=== PATIENT | male | born 1945 | race Caucasian/White ===

== ENCOUNTER 2024-11-14 14:46 | Emergency (ER) | payer OTHER ==
--- NOTE | 2024-11-14 15:43 | EDPHYS ---
Physician Documentation [facility] Name: Bradly Lowe Age: 78 yrs Sex: Male : 1945 Arrival Date: 11/14/2024 Time: 14:46 Bed DX4 Private MD: ED Physician Kwesi Maier HPI: 11/14 15:38 This 78 yrs old Male presents to ER via Ambulatory with complaints of Insect Bite. cr8 15:38 Patient is a 78-year-old male with a history of hypertension A-fib diabetes that comes cr8 emergency room for possible spider bite to his right lower leg. Has been there for a week. Denies fever or chills. He has been to multiple physicians and he states they tell him is nothing and to monitor it. There is been no rapid expansion. It is painful. There are some bruising overlying. He thinks is a spider bite.. Historical: - Allergies: 15:26 No Known Allergies; me1 - PMHx: 15:26 Diabetes mellitus; Hypertensive disorder; neuropathy; Atrial fibrillation; me1 - PSHx: 15:26 Operative procedure on knee; left shoulder; me1 - Immunization history:: Adult Immunizations up to date. - Infectious Disease History:: Denies. - Social history:: Smoking status: Patient denies any tobacco usage or history of. ROS: 15:38 Constitutional: as per HPI cr8 Exam: 15:38 Constitutional: This is a well developed, well nourished patient who is awake, alert, cr8 and in no acute distress. Skin: Warm, dry with normal turgor. Right lower extremity on the distal anterior surface there is a 1-1/2 cm induration with ecchymosis and tenderness. Is nonfluctuant. There is no significant surrounding warmth or erythema. It is tender to palpation. Color is consistent with bruising and possible hematoma. MS/ Extremity: Pulses equal, no cyanosis. Neurovascular intact. Full, normal range of motion. Vital Signs: 15:20 BP 119 / 81; Pulse 78; Resp 18; Temp 98.2; Pulse Ox 96% ; Weight 95.25 kg; Height 5 ft. me1 8 in. ; Pain 7/10; 15:20 Body Mass Index 31.93 (95.25 kg, 172.72 cm) me1 15:20 Pain Scale: Adult me1 Procedures: 15:38 Cleaned the area with alcohol. Then using #11 scalpel to make a quick puncture. There cr8 was no purulent fluid. Only sanguinous drainage. Patient verbalized understanding was agreeable with the procedure.. MDM: 15:37 Medical Screening Exam initiated cr8 15:38 Data reviewed: vital signs, nurses notes. ED course: Patient came into the emergency cr8 room for a wound that he believes is a spider bite. Differential includes cellulitis, hematoma, abscess, necrotizing fasciitis. On examination there is no evidence of true infection. There is no surrounding warmth erythema. The wound is not fluctuant. There is been no rapid progression fever or chills I do not suspect necrotizing fasciitis. Used a #11 blade scalpel to make a puncture wound. No purulent fluid was expressed. However given his diabetic status and comorbidities we will go ahead and place him on doxycycline in case he does develop infection. Discussed other treatment plan including symptomatic treatment. He verbalized understanding was agreeable. Discharged in stable condition.. Administered Medications: No medications were administered Disposition Summary: 11/14/24 15:43 Discharge Ordered Notes: Location: Home cr8 Condition: Stable cr8 Diagnosis - Nontraumatic hematoma of soft tissue cr8 - Spontaneous ecchymoses cr8 Followup: cr8 - With: Private Physician - When: 2 - 3 days - Reason: Recheck today's complaints Followup: cr8 - With: Emergency Department - When: As needed - Reason: Fever > 102 F, Worsening of condition Discharge Instructions: - Discharge Summary Sheet cr8 - Hematoma cr8 Forms: - Medication Reconciliation Form cr8 - Antibiotic Education cr8 - Patient Portal Instructions cr8 - Leadership Thank You Letter cr8 Prescriptions: - Doxycycline Hyclate 100 mg Oral tablet - take 1 tablet ORAL route every 12 hours for 7 days; 14 tablet; Refills: 0, cr8 Product Selection Permitted Signatures: Yohana Lizarraga RN RN ks1 Zander Lama NP NP cr8 Corrections: (The following items were deleted from the chart) 15:29 15:26 PSHx: neuropathy; me1 me1 15:39 15:38 Patient is a 78-year-old male with a history of hypertension. cr8 cr8
--- NOTE | 2024-11-14 15:43 | ER ---
Nurse's Notes [facility] Name: Bradly Lowe Age: 78 yrs Sex: Male : 1945 Arrival Date: 11/14/2024 Time: 14:46 Bed DX4 Private MD: Diagnosis: Nontraumatic hematoma of soft tissue;Spontaneous ecchymoses Presentation: 11/14 15:20 Chief complaint: Patient states: one week ago patient noticed a red, swollen area on me1 right mattson, saw pcp and he didn't prescribe anything. Wound has worsened and he went to urgent care yesterday or day before and they chuy a shoalwater around the red area and was told to come back if the redness gets worse. Redness is present outside of shoalwater. Pain level 7/10. Denies fever/chills. Coronavirus screen: Vaccine status: Patient reports receiving the 2nd dose of the covid vaccine. Ebola Screen: No symptoms or risks identified at this time. Initial Sepsis Screen: Does the patient meet any 2 criteria? No. Patient's initial sepsis screen is negative. Does the patient have a suspected source of infection? No. Patient's initial sepsis screen is negative. Risk Assessment: Do you want to hurt yourself or someone else? Patient reports no desire to harm self or others. Onset of symptoms was November 07, 2024. 15:20 [place] [facility] [place] Acuity: BRICE 3 me1 Historical: - Allergies: 15:26 No Known Allergies; me1 - PMHx: 15:26 Diabetes mellitus; Hypertensive disorder; neuropathy; Atrial fibrillation; me1 - PSHx: 15:26 Operative procedure on knee; left shoulder; me1 - Immunization history:: Adult Immunizations up to date. - Infectious Disease History:: Denies. - Social history:: Smoking status: Patient denies any tobacco usage or history of. Assessment: 16:14 Reassessment: Patient is alert, oriented x 3, equal unlabored respirations, skin aa5 warm/dry/pink. Vital Signs: 15:20 BP 119 / 81; Pulse 78; Resp 18; Temp 98.2; Pulse Ox 96% ; Weight 95.25 kg; Height 5 ft. me1 8 in. ; Pain 7/10; 15:20 Body Mass Index 31.93 (95.25 kg, 172.72 cm) me1 15:20 Pain Scale: Adult me1 ED Course: 14:51 Patient arrived in ED. al6 14:59 [facility] cr8 14:59 Kwesi Maier MD is Attending Physician. cr8 15:25 Triage completed. me1 15:26 Arm band placed on Patient placed in waiting room. me1 16:15 No provider procedures requiring assistance completed. Patient did not have IV access aa5 during this emergency room visit. Administered Medications: No medications were administered Outcome: 15:43 Discharge ordered by MD. cr8 16:14 Discharged to home ambulatory, aa5 16:14 Condition: stable 16:14 Discharge instructions given to patient, Instructed on discharge instructions, follow up and referral plans. medication usage, Demonstrated understanding of instructions, follow-up care, medications, Prescriptions given X 1, 16:15 Patient left the ED. aa5 Signatures: Rosa M Carrion RN RN aa5 Yohana Lizarraga RN RN me1 Gricel Quach al6 Zander Lama NP [employer] cr8 Corrections: (The following items were deleted from the chart) 15:29 15:26 PSHx: neuropathy; wa1 wa1
[2024-11-14 16:45] VITALS: BP 119/81; TEMP 98.2; O2SAT 96
== END 2024-11-14 16:15 | disposition home or self-care (01) ==
LOC: ER 14:46
DX: M79.81 Nontraumatic hematoma of soft tissue (principal); R23.3 Spontaneous ecchymoses
CPT/HCPCS: 99283